=== PATIENT | male | born 1950 | race Caucasian/White ===

== ENCOUNTER 2019-06-17 07:01 | Day surgery (SDC) | payer MEDICARE ==
[2019-06-15 11:20] LABS: CLARITY,URINE CLEAR (Clear); COLOR,URINE YELLOW (Yellow); GLUCOSE, URINE NEGATIVE (Neg); KETONES,URINE NEGATIVE (Neg); LEUKOCYTE ESTERASE ,URINE NEGATIVE (Neg); NITRITES, URINE NEGATIVE (Neg); OCCULT BLOOD,URINE TRACE-INTACT (Neg); PH,URINE 5.5 (4.8-8.0); PROTEIN,URINE NEGATIVE (Neg); UROBILINOGEN,URINE 0.2 E.U/dL (0.2-1.0)
[2019-06-15 11:25] LABS: UA COLLECTION TYPE NON-SPECIFIED
[2019-06-15 11:25] LABS: BASOPHILS % (AUTO) 0.8 % (0-1); EOSINOPHILS # (AUTO) 0.2 X10'3 (0-0.9); EOSINOPHILS % (AUTO) 3.9 % (0-6); LYMPHOCYTES # (AUTO) 1.7 X10'3 (1.1-4.8); LYMPHOCYTES % (AUTO) 28.4 % (21-51); MEAN CORPUSCULAR HEMOGLOBIN 30.2 PG (27.0-31.0); MEAN CORPUSCULAR HGB CONC 33.9 g/dL (33.0-36.5); MEAN PLATELET VOLUME 7.7 FL (7.4-10.4); MONOCYTES # (AUTO) 0.5 X10'3 (0-0.9); MONOCYTES % (AUTO) 8.2 % (2-12); NEUTROPHILS # (AUTO) 3.6 X10'3 (1.8-7.7); NEUTROPHILS % (AUTO) 58.7 % (42-75); PRE OP HEMATOCRIT 47.2 % (42.0-52.0); PRE OP PLATELET COUNT 239 X10'3 (140-440); RED BLOOD COUNT 5.31 X10'6 (4.70-6.10); RED CELL DISTRIBUTION WIDTH 13.7 % (11.5-14.5)
[2019-06-15 11:27] LABS: BACTERIA,URINE NONE SEEN /HPF (Neg); MUCUS STRANDS NONE SEEN /LPF (Neg); RBC,URINE 0-2 /HPF (0-2); SQUAMOUS EPITHELIAL CELL,UR FEW /LPF (FEW); WBC,URINE 0-4 /HPF (0-4)
[2019-06-15 11:38] LABS: ALBUMIN 3.9 G/DL (3.4-5.0); ALBUMIN/GLOBULIN RATIO 1.1 (1.1-1.5); ALKALINE PHOSPHATASE 85 IU/L (46-116); BLOOD UREA NITROGEN 11 MG/DL (7-18); BUN/CREATININE RATIO 12.2 (5.4-32.0); CALCIUM 8.7 MG/DL (8.5-10.1); CHLORIDE 107 MMOL/L (99-107); PRE OP ALT 25 U/L (30-65); PRE OP ANION GAP 8 (8-16); PRE OP AST 13 U/L (10-37); PRE OP BILIRUB, TOTAL 0.5 MG/DL (0.0-1.0); PRE OP GLUCOSE 109 MG/DL (70-104); PRE OP POTASSIUM 4.4 MMOL/L (3.4-5.1); PRE OP SODIUM 142 MMOL/L (135-145); TOTAL CARBON DIOXIDE 27.5 MMOL/L (24-32); TOTAL PROTEIN 7.6 G/DL (6.4-8.2); eGFR 84 ML/MIN
[~2019-06-17] VITALS: Ht 185.4 cm; Wt 88.3 kg
[2019-06-17] VITALS (8 sets, daily range): BP systolic 145–178; BP diastolic 81–107
[~2019-06-17 07:01] MED LIST: ASPI-1264 PO
[2019-06-17] MEDS ORDERED: famotidine 20mg tablet PO ONE (10:30)
[2019-06-17] MEDS ORDERED: cefazolin/dext.iso 2gm/50ml 50 ML IV ONE (10:30)
[2019-06-17] MEDS ORDERED: ringers solution, lacted 1,000 ML IV SCH ×2 (10:30→11:59)
[2019-06-17] MEDS ORDERED: ondansetron/PF 4mg/2ml inj IV PRN ×2 (12:00→14:10)
[2019-06-17] MEDS ORDERED: morphine 4 MG/ML inj SYRINge IV PRN ×2 (12:00)
[2019-06-17] MEDS ORDERED: meperidine/PF 25mg/ml syringe IV PRN ×3 (12:00)
[2019-06-17] MEDS ORDERED: proCHLORperazine 10 MG/2 ml inj IV PRN (12:00)
[2019-06-17] MEDS ORDERED: ceFAZolin 1000mg inj ONE (12:40)
[2019-06-17] MEDS ORDERED: BUPIVAcaine/PF 2.5 mg/ml (0.25%) 30ml vial ONE (12:41)
[2019-06-17] MEDS ORDERED: sevoflurane 250ml liquid IH ONE (13:18)
[2019-06-17] MEDS ORDERED: midazolam 2 mg/2 ml injection ONE (13:20)
[2019-06-17] MEDS ORDERED: fentaNYL /PF 50mcg/ml 5ml ampule ONE (13:21)
[2019-06-17] MEDS ORDERED: propofol inj 20 ML IV ONE (14:02)
[2019-06-17] MEDS ORDERED: neostigmine methylsulfate 1 MG/ML 10ml vial ONE (14:02)
[2019-06-17] MEDS ORDERED: rocuronium 10mg/ml inj IV ONE (14:02)
[2019-06-17] MEDS ORDERED: glycopyrrolate 0.2mg/ml inj ONE (14:05)
--- NOTE | 2019-06-17 14:20 | NUR ---
Received from OR via BED , accompanied by Anesthesiologist DR WITT and report given by Anesthesiolgist. PATIENT WAKING UP, DENIES PAIN, V/S WNL, NEUROVASCULAR CHECKS INTACT, 20G PIV LUE, SCD ON, 2 BANDAIDS TO LAP SIGHTS OF ABDOMEN AND ISLAND DRESSING CDI.
--- NOTE | 2019-06-17 15:10 | NUR ---
PATIENT A&OX4, DENIES PAIN, V/S WNL, NEUROVASCULAR CHECKS INTACT, 20G PIV LUE D/C, SCD OFF, 2 BANDAIDS TO LAP SIGHTS OF ABDOMEN AND ISLAND DRESSING REINFORCED DUE TO MILD DRAINAGE IN ORDER TO PROTECT HIS SHIRT AND IS NOW CDI.. I HAVE REVIEWED D/C INSTRUCTIONS WITH PATIENT AND FAMILY HAVE VERBALIZED UNDERSTANDING.PATIENT WAS D/C HOME WITH ALL BELONGINGS AND FAMILY GAVE TRANSPORT HOME.
== END 2019-06-17 15:10 | disposition home or self-care (01) ==
LOC: PAS 07:01
PROVIDERS: ATTEND Surgery
DX: K42.9 Umbilical hernia without obstruction or gangrene (principal); I10 Essential (primary) hypertension; Z72.89 Other problems related to lifestyle; M19.90 Unspecified osteoarthritis, unspecified site; Z79.899 Other long term (current) drug therapy; Z96.659 Presence of unspecified artificial knee joint; Z98.49 Cataract extraction status, unspecified eye; Z87.891 Personal history of nicotine dependence
CPT/HCPCS: 36415; 49652; 80053; 81001; 82948; 85025; C1758; C1781; J0690; J2250; J2704; J2710; J3010; J3490; J7120; 93005; A4215; A4618; A7000